=== PATIENT | female | born 1990 ===

== ENCOUNTER 2023-02-12 11:55 | Emergency (ER) | payer MEDICAID, SELFPAY ==
--- NOTE | 2023-02-12 12:04 | ED.GENADULT ---
HPI - General Adult General Chief complaint: General Medical Stated complaint: not feeling well? Time Seen by Provider: 02/12/23 13:14 Source: patient Mode of arrival: ambulatory Limitations: no limitations History of Present Illness HPI narrative: 32 yold female presents to the ED for sore throat, bilateral ear pain, bodyaches, maliase and dry cough. patient states and other children are also sick. patient denies any chest pain or shortness of breath. patient denies any abdomianl pain, rash, symptoms, calf pain, or recent travel. Related Data Previous Rx's Medication Instructions Recorded albuterol sulfate 90 mcg/actuation 2 puff inhalation Q4-6H PRN 02/12/23 aerosol inhaler (Proventil HFA) shortness of breath or wheezing #6.7 grams azithromycin 250 mg tablet See Rx Instructions PO .COMPLEX #6 02/12/23 tabs benzonatate 200 mg capsule 200 mg PO TID PRN cough 5 days #15 02/12/23 caps Allergies Allergy/AdvReac Type Severity Reaction Status Date / Time No Known Allergies Allergy Verified 02/12/23 12:06 Review of Systems Review of Systems: sore throat, bilateral ear pain, bodacyehs, malaise Yes all other systems are reviewed and are negative [facility] Social History Social History Advance Directives: No Advance Directives Information Provided: No Physical Exam ED Vital Signs: Vital Signs - 24 hr 02/12/23 12:06 Temperature 98 F Pulse Rate 82 Respiratory Rate 15 Blood Pressure 130/99 H Pulse Oximetry 97 Oxygen Delivery Method Room Air BMI result Body Mass Index 35.4 Const General: cooperative, healthy appearing, comfortable, no acute distress, well developed, alert, awake and Physically active Orientation/consciousness: oriented to person, oriented to place, oriented to time and patient oriented x3 HENMT Head: Yes normal to inspection, Yes No palpable skull fracture present, Yes normocephalic, Yes atraumatic and No abrasion Ears: hearing grossly normal bilaterally, external ears normal, TM's normal bilaterally, TM normal on the right, TM normal on the left, EAC's normal, mastoids normal and no periauricular adenopathy Throat: Yes posterior oropharynx normal, Yes tonsils normal and Yes uvula midline Eyes General: appearance normal, both eyes and all related structures Pupils: Equal, round and reactive pupils present Neck Neck: Yes normal visual inspection, Yes full ROM, Yes no lymphadenopathy, Yes no meningeal signs, Yes trachea midline, Yes supple, No anterior neck swelling and No tender Chest Chest palpation & inspection: normal inspection of the chest and normal palpation of entire chest wall Resp Effort & Inspection: normal respiratory effort and able to speak in complete sentences Auscultation: clear to auscultation bilaterally Cardio Jugular venous distension: no JVD Heart sounds: S1 normal heart sound present and S2 normal heart sound present GI Inspection: Yes normal to inspection and No abdominal wall ecchymosis Palpation (GI): Soft to palpation, not firm, nontender, no guarding and not rigid General: No CVA tenderness and Yes no CVA tenderness Back/Spine/Pelvis Back: no CVA tenderness, No CVA tenderness and No back tenderness Skin General skin exam: no rashes or lesions noted, elasticity normal and turgor normal Neuro General: oriented to person, oriented to place, oriented to time, patient oriented x3, gait normal, tone normal, moves all extremities, Normal light touch and pain sensation, no meningeal signs, no focal motor deficits, CN's II-XI intact bilaterally and normal sensation to monofilament Cranial nerves: Yes Equal, round and reactive pupils present Extrem General: Yes normal to inspection and Yes full ROM Psych Appearance: grossly normal, well kempt and not disheveled Course Course Course Narrative: This is an RME: Additional HPI, ROS, PE not included below will be deferred to primary provider. Patient is an adult female with no medical history presents with not feeling good . Patient reports pain in her head, ears, and throat. Patient reports feeling off balance and having a productive cough with green sputum. Patient reports feeling unwell for 2 days. Patient's sons are sick at home with similar symptoms. Plan: labs, cxr Medical Decision Making Medical Decision Making [facility] Narrative: 32 yold female presents tot he ED for sore throat, bilateral ear pain, coughing with green phelghm, and malaise. patient states no chest pain or shortness of breath. Xray normal. Swabs negatve. Differential Diagnosis Differential Diagnoses: The differential diagnosis associated with the presentation includes ( pneumonia, strep throat, COVID, influenza viral syndrome, otitis media, otitis externa) Admission/Observation Consideration of admission/observation: Escalation of care including admission/observation considered Lab Data [facility] Lab Attestation statement: I reviewed the patient's lab results. Labs: Lab Results 02/12/23 02/12/23 02/12/23 Range/Units 12:14 12:14 13:48 COVID-19 (TONIE) Negative (Negative) COVID-19 Clin Com See Note Influenza Type A (ISAC) Negative (Negative) Influenza Type B (ISAC) Negative (Negative) Influenza A & B Note See Note S. pyogenes GrpA ISAC Negative (Negative) Independent Interpretation I performed an independent interpretation of an: Plain X-Ray Radiology Impression Discussion of test interpretation with radiology: I have reviewed the radiologist's reading. Prescription Management I considered prescription management with: Antibiotic (azithromycin) and Other (cough medication) Discharge Plan Discharge Clinical Impression: Bronchitis Patient Disposition: Home, Self-Care Instructions: Acute Bronchitis (ED) Additional Instructions: return to the ED for any chest pain, shortness of breath, drooling, change in voice, inability tolerate solid food/ liquid, weakness, headache, intractable fever, chills, abdominal pain, nausea, vomiting, dysuria, hematuria, flank pain, rash, or any other concerning symptoms. Please follow up with PCP. Prescriptions: New azithromycin 250 mg tablet See Rx Instructions .ROUTE .COMPLEX Qty: 6 0RF Rx Instructions: For 250 mg dose pack: take 500 mg today (day 1), then 250 mg for 4 days (days 2-5) benzonatate 200 mg capsule 200 mg PO TID PRN (Reason: cough) 5 Days Qty: 15 0RF albuterol sulfate [Proventil HFA] 90 mcg/actuation HFA aerosol inhaler 2 puff inhalation Q4-6H PRN (Reason: shortness of breath or wheezing) Qty: 6.7 0RF Stand Alone Forms: Work/School Release Interventions: ED Discharge Assessment Last Done: 02/12/23 14:45 Discharge Date/Time: 02/12/23 14:45 Print Language: Algerian
[2023-02-12 12:06] VITALS: BP 130/99; PULSE 82; RESP 15; TEMP 36.6; O2SAT 97; BMI 35.4
== END 2023-02-12 14:45 | disposition home or self-care (01) ==
PROVIDERS: Emergency Provider Emergency Medicine Emergency Medical Services
DX: J40 Bronchitis, not specified as acute or chronic (principal); Z20.822 Contact with and (suspected) exposure to COVID-19; Z20.828 Contact with and (suspected) exposure to other viral communicable diseases
CPT/HCPCS: 71045; 87502; 87635; 87651; 99282; 99283